=== PATIENT | female | born 1985 | race Caucasian/White ===

== ENCOUNTER 2021-04-11 11:11 | Outpatient (CLI) | payer MEDICAID ==
[2021-04-11 11:59] LABS: Basophils # (Auto) 0.2 K/mm3 (0.0-0.1); Eosinophils # (Auto) 0.1 K/mm3 (0.0-0.4); Eosinophils % (Auto) 1.9 % (0.0-4.3); Hematocrit 38.7 % (30.3-42.9); Hemoglobin 13.6 gm/dl (10.1-14.3); Lymphocytes # (Auto) 1.3 K/mm3 (1.2-5.4); Lymphocytes % (Auto) 21.6 % (13.4-35.0); Mean Corpuscular HGB Conc 35 % (30-34); Mean Corpuscular Volume 89 fl (79-97); Monocytes # (Auto) 0.3 K/mm3 (0.0-0.8); Monocytes % (Auto) 4.6 % (0.0-7.3); Platelet Count 293 K/mm3 (140-440); Red Blood Count 4.34 M/mm3 (3.65-5.03); Red Cell Distribution Width 13.4 % (13.2-15.2)
[2021-04-11 12:02] LABS: Bilirubin,Urine NEG (Negative); Blood,Urine NEG (Negative); Color,Urine Yellow (Yellow); Mucus,Urine FEW /HPF; Protein,Urine <15 mg/dL mg/dL (Negative); Urobilinogen,Urine < 2.0 mg/dL (<2.0)
[2021-04-11 12:27] LABS: Alanine Aminotransferase 11 units/L (7-56); Albumin 4.1 g/dL (3.9-5); BUN/Creatinine Ratio 24; Blood Urea Nitrogen 12 mg/dL (7-17); Calcium 9.3 mg/dL (8.4-10.2); Chol/HDL Ratio 2.13 %; HDL Cholesterol 75 mg/dL (40-59); Hemolysis Index 2; LDL Cholesterol,Direct 89 mg/dL (50-130)
[2021-04-14 12:39] LABS: Vitamin D, 25-OH, D2 <4 ng/mL
== END 2021-04-11 11:12 | disposition home or self-care (01) ==
LOC: LAB 11:11
PROVIDERS: ATTEND Internal Medicine
DX: Z00.00 Encounter for general adult medical examination without abnormal findings (principal); Z13.220 Encounter for screening for lipoid disorders; Z55.9 Problems related to education and literacy, unspecified; Z13.29 Encounter for screening for other suspected endocrine disorder; E55.9 Vitamin D deficiency, unspecified; Z86.16 Personal history of COVID-19
CPT/HCPCS: 36415; 80053; 80061; 81001; 82306; 83036; 84443; 85025

== ENCOUNTER 2021-04-18 10:54 | Outpatient (CLI) | payer MEDICAID ==
--- NOTE | 2021-04-18 13:31 | XRay Report ---
THORACIC SPINE 3 VIEWS INDICATION: DORSALGIA,UNSPECIFIED M54.9. COMPARISON: None. IMPRESSION: Normal alignment. There is mild dextrocurvature of the midthoracic spine with apex near T8. 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 No acute osseous or soft tissue abnormal ity. Signer Name: Sergio Mendes Jr, MD Signed: 04/18/2021 1:26 PM Workstation Name: [id number]
--- NOTE | 2021-04-18 13:44 | Mammography Report ---
DIGITAL SCREENING MAMMOGRAM WITH CAD, 04/18/2021 CLINICAL INFORMATION / INDICATION: Routine screening mammography. TECHNIQUE: Digital bilateral 2D mammography was obtained in the craniocaudal and mediolateral obliqu e projections. This examination was interpreted with the benefit of Computer-Aided Detection analysis . COMPARISON: Baseline FINDINGS: Breast Density: There are scattered areas of fibroglandular density. No dominant mass, suspicious calcifications, or architectural distortion in either breast. IMPRESSION: 1. No suspicious mammographic abnormality identified in either breast. 2. The patient indicates that she has left breast pain near the nipple when sleeping. Recommend clini dale correlation, and if there is ongoing clinical concern, a targeted ultrasound could be performed f or further evaluation. Follow up recommendation: Unless otherwise clinically indicated, recommend patient return to routine screening mammography at age 40. BI-RADS Category 1: Negative. A "normal" or negative report should not discourage follow up or biopsy of a clinically significant f inding. A written summary of these findings will be mailed to the patient. The patient will be entered into a mammography reporting system which will generate a reminder letter for the patient's next appointmen t at the appropriate interval. The [employer] recommends yearly mammograms starting at age 40 and continuing as l nanette as a woman is in good health. Breast MRI is recommended for women with an approximate 20-25% or greater lifetime risk of breast cancer, including women with a strong family history of breast or ova veronica cancer or who have been treated for Hodgkin's disease. Signer Name: Yamini Soares MD Signed: 04/18/2021 1:40 PM Workstation Name: [id number]
== END 2021-04-18 10:55 | disposition home or self-care (01) ==
LOC: MAMMO 10:54
PROVIDERS: ATTEND Internal Medicine
DX: Z12.31 Encounter for screening mammogram for malignant neoplasm of breast (principal); M47.814 Spondylosis without myelopathy or radiculopathy, thoracic region
CPT/HCPCS: 72072; 77067

== ENCOUNTER 2021-07-03 09:32 | Outpatient (CLI) | payer MEDICAID ==
--- NOTE | 2021-07-03 10:44 | XRay Report ---
CHEST 2 VIEWS INDICATION: GASTRIC SLEEVE. COMPARISON: None FINDINGS: Support devices: None. Heart: Within normal limits. Lungs/pleura: No acute air space or interstitial disease. No pneumothorax. Additional findings: None. IMPRESSION: Unremarkable chest films. Signer Name: Sergio Mendes Jr, MD Signed: 07/03/2021 10:40 AM Workstation Name: [id number]
--- NOTE | 2021-07-03 11:48 | Fluoroscopy Report ---
BARIUM SWALLOW Indication: GASTRIC SLEEVE. Technique: Single contrast barium technique utilized to evaluate the esophagus. FINDINGS: To begin the exam, swallowing was evaluated in the lateral position under direct fluorosco py. Swallowing was normal. No mucosal irregularity, mass, mass effect, or critical stenosis. There were no abnormal tertiary c ontractions as seen with dysmotility. No gastroesophageal reflux. IMPRESSION: Unremarkable exam. Fluoroscopic time: 0.8 minutes Number of fluoroscopic images: 31 Signer Name: Sergio Mendes Jr, MD Signed: 07/03/2021 11:43 AM Workstation Name: [id number]
== END 2021-07-03 09:33 | disposition home or self-care (01) ==
LOC: FLUORO 09:32
PROVIDERS: ATTEND Surgery
DX: E66.01 Morbid (severe) obesity due to excess calories (principal)
CPT/HCPCS: 71046; 74220

== ENCOUNTER 2021-07-18 07:19 | Day surgery (SDC) | payer MEDICAID ==
[~2021-07-18 07:19] MED LIST: SODIUM CHLORIDE 0.9% 1000 ML 1,000 ML IV SCH
--- NOTE | 2021-07-18 09:08 | Operative Report ---
Operative Report Operative Report: DATE: 07/18/2021 SURGERY: Upper endoscopy. SURGEON: Alberto Milian M.D. PROCEDURE: EGD with biopsy PRE OP DX: morbid obesity, GERD POST OP DX: morbid obesity, GERD TYPE OF ANESTHESIA: MAC. ESTIMATED BLOOD LOSS: None. COMPLICATIONS: None. SPECIMENS REMOVED: antral biopsy FINDINGS: 1. Small hiatal hernia. 2. Otherwise, normal esophagus, stomach and first portion of duodenum. INDICATIONS:INDICATION FOR PROCEDURE: Patient is a 36-year-old female with a long history of morbid obesity. She is planned to have a weight loss procedure and is here for preoperative planning EGD. PROCEDURE DETAILS: After consent was reviewed, patient was taken back to the operating room where patient was placed in the left lateral decubitus position and a bite block was placed in the mouth. After a time-out was called, MAC anesthesia was initiated. I then passed the endoscope into her oropharynx, into her esophagus, visualized the entire esophagus, which was all within normal limits. Z-line was noted to about 36 cm from incisors. I then visualized the stomach and the first portion of the duodenum and there were no abnormalities I could clearly visualize except for antral gastritis. A cold forceps biopsy of the antrum was taken and will be sent to pathology to evaluate for H.pylori. I then retroflexed the scope in the stomach and visualized the hiatus and I could see a small hiatal hernia. I then desufflated the stomach and removed the endoscope. Patient tolerated procedure well and was transferred to recovery room in good and stable condition.
--- NOTE | 2021-07-18 09:10 | Discharge Summary ---
Providers - Providers Date of Admission: 07/18/2021 Date of discharge: 07/18/21 Attending physician: MARIAN HANNA MD Primary care physician: JANICE LUIS Hospitalization Reason for admission: pre-op planning egd Condition: Poor Procedures: egd with bx Hospital course: Pt presented for a pre-op EGD as part of planning for up coming bariatric surgery. Procedure was uneventful and pt recovered well and was discharged to home. Disposition: 01 HOME / SELF CARE / HOMELESS Final Discharge Diagnosis (Prints w/discharge instructions): gerd, morbid obesity Core Measure Documentation - Palliative Care Palliative Care/ Comfort Measures: Not Applicable - Core Measures Any of the following diagnoses?: none Exam - Physical Exam Narrative exam: unchanged from pre-op Plan Activity: advance as tolerated Diet: low carbohydrate Follow up with: JANICE LUIS MD [Primary Care Provider] - 7 Days
[2021-07-18] MEDS ORDERED: LIDOCAINE MPF (2%) 20 MG/1 ML VIAL 5 ML ONE (09:32)
[2021-07-18] MEDS ORDERED: MIDAZOLAM 2 MG/2 ML INJ ONE (09:32)
[2021-07-18] MEDS ORDERED: propofoL 200 MG/20 ML VIAL IV ONE (09:32)
--- NOTE | 2021-07-18 14:40 | Anesthesia Day of Surgery ---
Anesthesia Day of Surgery - Day of Surgery Patient Examined: Yes Patient H&P Reviewed: Yes Patient is NPO: Yes
--- NOTE | 2021-07-18 14:43 | Anesthesia Consultation ---
Anesthesia Consult and Med Hx Date of service: 07/18/21 - Airway Anesthetic Teeth Evaluation: Good ROM Head & Neck: Adequate Mental/Hyoid Distance: Adequate Mallampati Class: Class II Intubation Access Assessment: Good - Pre-Operative Health Status ASA Pre-Surgery Classification: ASA3 Proposed Anesthetic Plan: MAC - Gastrointestinal Hx Gastroesophageal Reflux Disease: No - Endocrine Hx Non-Insulin Dependent Diabetes: Yes (Pre) - Other Systems Hx Alcohol Use: Yes Hx Obesity: Yes
--- NOTE | 2021-07-18 14:44 | Post Anesthesia Evaluation ---
- Post Anesthesia Evaluation Patient Participated: Yes Airway Patent: Yes Stable Respiratory Function: Yes Nausea/Vomiting: No Temp > 96.8F: Yes Pain Manageable: Yes Adequeate Hydration: Yes Anesthesia Complications: No Block Receding Appropriately: Not Applicable Patient on Ventilator: No
[2021-07-18 16:40] VITALS: BP 128/72
== END 2021-07-18 14:51 | disposition home or self-care (01) ==
LOC: GIO 07:19
PROVIDERS: ATTEND Surgery
DX: E66.01 Morbid (severe) obesity due to excess calories (principal); K21.9 Gastro-esophageal reflux disease without esophagitis; K44.9 Diaphragmatic hernia without obstruction or gangrene; K31.89 Other diseases of stomach and duodenum; E11.9 Type 2 diabetes mellitus without complications; Z79.899 Other long term (current) drug therapy; Z98.890 Other specified postprocedural states; Z72.89 Other problems related to lifestyle
CPT/HCPCS: 43239; 88305; 88342; J2250; J2704; J3490; J7030; J7120; Q0162

== ENCOUNTER 2021-11-22 09:06 | Outpatient (CLI) | payer MEDICAID ==
[2021-11-22 09:39] LABS: Basophils % (Auto) 1.2 % (0.0-1.8); Eosinophils # (Auto) 0.3 K/mm3 (0.0-0.4); Eosinophils % (Auto) 7.6 % (0.0-4.3); Hematocrit 39.4 % (30.3-42.9); Hemoglobin 13.2 gm/dl (10.1-14.3); Lymphocytes # (Auto) 1.5 K/mm3 (1.2-5.4); Lymphocytes % (Auto) 36.5 % (13.4-35.0); Mean Corpuscular HGB Conc 34 % (30-34); Mean Corpuscular Volume 88 fl (79-97); Monocytes # (Auto) 0.3 K/mm3 (0.0-0.8); Monocytes % (Auto) 7.5 % (0.0-7.3); Platelet Count 233 K/mm3 (140-440); Red Cell Distribution Width 13.7 % (13.2-15.2)
[2021-11-22 10:01] LABS: % Iron Saturation 31.82 %; Alanine Aminotransferase 11 units/L (7-56); Albumin 4.2 g/dL (3.9-5); Blood Urea Nitrogen 9 mg/dL (7-17); Calcium 9.4 mg/dL (8.4-10.2); Chol/HDL Ratio 2.69 %; HDL Cholesterol 46 mg/dL (40-59); Hemolysis Index 0; Iron 70 ug/dL (37-170); LDL Cholesterol,Direct 70 mg/dL (50-130); Total Iron Binding Capacity 220 mcg/dL (250-450)
[2021-11-22 10:06] LABS: BUN/Creatinine Ratio 18
== END 2021-11-22 09:07 | disposition home or self-care (01) ==
LOC: LAB 09:06
PROVIDERS: ATTEND Surgery
DX: Z13.21 Encounter for screening for nutritional disorder (principal); Z13.9 Encounter for screening, unspecified; Z13.29 Encounter for screening for other suspected endocrine disorder; E66.01 Morbid (severe) obesity due to excess calories; K30 Functional dyspepsia; E11.9 Type 2 diabetes mellitus without complications; K90.9 Intestinal malabsorption, unspecified; E55.9 Vitamin D deficiency, unspecified; Z98.84 Bariatric surgery status
CPT/HCPCS: 36415; 80053; 80061; 82306; 82607; 82728; 83036; 83550; 83970; 84425; 84443; 85025

== ENCOUNTER 2022-04-30 11:38 | Outpatient (CLI) | payer MEDICAID ==
[2022-04-30 13:08] LABS: Eosinophils # (Auto) 0.1 K/mm3 (0.0-0.4); Eosinophils % (Auto) 2.1 % (0.0-4.3); Hematocrit 37.6 % (30.3-42.9); Hemoglobin 12.7 gm/dl (10.1-14.3); Lymphocytes # (Auto) 1.8 K/mm3 (1.2-5.4); Lymphocytes % (Auto) 34.5 % (13.4-35.0); Mean Corpuscular HGB Conc 34 % (30-34); Mean Corpuscular Volume 90 fl (79-97); Monocytes # (Auto) 0.4 K/mm3 (0.0-0.8); Monocytes % (Auto) 7.2 % (0.0-7.3); Platelet Count 270 K/mm3 (140-440); Red Blood Count 4.16 M/mm3 (3.65-5.03); Red Cell Distribution Width 13.5 % (13.2-15.2)
[2022-04-30 13:23] LABS: Albumin 4.8 g/dL (3.9-5)
[2022-04-30 14:41] LABS: % Iron Saturation 40.07 %; Alanine Aminotransferase 11 units/L (7-56); Blood Urea Nitrogen 17 mg/dL (7-17); Calcium 9.4 mg/dL (8.4-10.2); Chol/HDL Ratio 2.08 %; HDL Cholesterol 74 mg/dL (40-59); Hemolysis Index 2; Iron 109 ug/dL (37-170); LDL Cholesterol,Direct 73 mg/dL (50-130); Total Iron Binding Capacity 272 mcg/dL (250-450)
[2022-04-30 14:45] LABS: Bacteria,Urine 1+ /HPF (Negative); Mucus,Urine 1+ /HPF
[2022-04-30 14:46] LABS: Color,Urine Yellow (Yellow)
[2022-04-30 15:09] LABS: BUN/Creatinine Ratio 28
== END 2022-04-30 11:39 | disposition home or self-care (01) ==
LOC: LAB 11:38
PROVIDERS: ATTEND Internal Medicine
DX: Z00.00 Encounter for general adult medical examination without abnormal findings (principal); R53.83 Other fatigue; N39.0 Urinary tract infection, site not specified; E66.01 Morbid (severe) obesity due to excess calories
CPT/HCPCS: 36415; 80053; 80061; 81001; 82306; 82607; 82728; 83036; 83550; 84425; 84443; 85025